=== PATIENT | female | born 1955 | race Caucasian/White ===

== ENCOUNTER 2017-11-22 21:19 | Inpatient (IN) | payer OTHER ==
[2017-11-22] MEDS: ACETAMINOPHEN 325 MG TAB PO (22:15)
[2017-11-22 22:45] LABS: BASO % 0.5 % (0.0-1.0); EOS % 0.3 % (0.0-3.0); HEMATOCRIT 43.9 % (36.0-47.0); HEMOGLOBIN 14.6 g/dl (12.0-15.5); IMMATURE GRANULOCYTE % 0.3 % (0-3.0); LYMPH # 1.1 10^3/uL (1.5-4.5); LYMPH % 14.8 % (24.0-44.0); MEAN CORPUSCULAR HEMOGLOBIN 31.1 pg (27.0-33.0); MEAN CORPUSCULAR HGB CONC 33.3 g/dl (32.0-36.5); MEAN CORPUSCULAR VOLUME 93.4 fl (80.0-96.0); MONO # 0.7 10^3/uL (0.0-0.8); MONO % 9.7 % (0.0-5.0); NEUTROPHILS # 5.5 10^3/uL (1.8-7.7); NEUTROPHILS % 74.4 % (36.0-66.0); PLATELET COUNT, AUTOMATED 185 10^3/uL (150-450); RED CELL DISTRIBUTION WIDTH 12.8 % (11.5-14.5); WHITE BLOOD COUNT 7.4 10^3/uL (4.0-10.0)
[2017-11-22 23:05] LABS: APPEARANCE, URINE CLEAR (CLEAR); BACTERIA, URINE AUTO NEGATIVE (NEGATIVE); BILIRUBIN, URINE AUTO NEGATIVE (NEGATIVE); BLOOD, URINE BLOOD NEGATIVE (NEGATIVE); COLOR, URINE YELLOW (YELLOW); GLUCOSE, URINE (UA) AUTO NEGATIVE (NEGATIVE); KETONE, URINE AUTO NEGATIVE (NEGATIVE); LEUKOCYTE ESTERASE, URINE AUTO NEGATIVE (NEGATIVE); MUCUS, URINE SMALL (NEGATIVE); NITRITE, URINE AUTO NEGATIVE (NEGATIVE); PROTEIN, URINE AUTO NEGATIVE (NEGATIVE); RBC, URINE AUTO 0 /HPF (0-3); SPECIFIC GRAVITY URINE AUTO 1.011 (1.002-1.035); SQUAMOUS EPITHELIAL CELL UR AU 0 /HPF (0-6); UROBILINOGEN, URINE AUTO 0.2 mg/dL (0.0-2.0); WBC, URINE AUTO 1 /HPF (0-3)
[2017-11-22 23:11] LABS: INFLUENZA A AMPLIFICATION NEGATIVE (NEGATIVE); INFLUENZA B AMPLIFICATION POSITIVE (NEGATIVE)
[2017-11-22 23:54] LABS: LACTIC ACID SEPSIS PROTOCOL 2.2 MMOL/L (0.4-2.0)
[2017-11-23 00:05] LABS: ALBUMIN 3.6 GM/DL (3.2-5.2); ALBUMIN/GLOBULIN RATIO 1.06 (1.00-1.93); ALKALINE PHOSPHATASE 65 U/L (45-117); ALT/SGPT 43 U/L (12-78); ANION GAP 8 MEQ/L (8-16); AST/SGOT 38 U/L (7-37); BILIRUBIN,DIRECT 0.1 MG/DL (0.0-0.2); BILIRUBIN,TOTAL 0.4 MG/DL (0.2-1.0); BLOOD UREA NITROGEN 8 MG/DL (7-18); CALCIUM LEVEL 8.6 MG/DL (8.8-10.2); CARBON DIOXIDE LEVEL 28 MEQ/L (21-32); CHLORIDE LEVEL 102 MEQ/L (98-107); GLOMERULAR FILTRATION RATE 48.6 (>45); GLUCOSE, FASTING 165 MG/DL (70-100); POTASSIUM SERUM 4.2 MEQ/L (3.5-5.1); SODIUM LEVEL 138 MEQ/L (136-145)
[2017-11-23] MEDS: IBUPROFEN 800 MG TAB PO (00:15)
[2017-11-23] MEDS: OSELTAMIVIR PHOSPHATE 75 MG CAP (TAMIFLU) PO ×3 (00:15→21:56)
[2017-11-23] MEDS: NS 500 ML IV ×2 (00:18→00:30)
[2017-11-23] MEDS ORDERED: ONDANSETRON 4MG/2ML VIAL (J2405) IV (00:45)
[2017-11-23] MEDS ORDERED: KETOROLAC TROMETHAMINE 10 MG TAB PO (02:15)
[2017-11-23] MEDS ORDERED: DEXTROSE 50% 50 ML SYRINGE IV (02:15)
[2017-11-23] MEDS ORDERED: GLUCOSE 4 GM CHEW TABLET PO (02:15)
[2017-11-23] MEDS ORDERED: GLUCAGON FOR INJ 1 MG VIAL (J1610) SC (02:15)
[2017-11-23] MEDS: NS 1,000 ML IV ×2 (02:38→16:27)
[2017-11-23] MEDS: ACETAMINOPHEN 500 MG TAB PO ×2 (02:38→21:57)
[2017-11-23] MEDS: LEVOTHYROXINE 137MCG TABLET (0.137MG) PO (06:06)
[2017-11-23 09:10] LABS: BEDSIDE GLUCOSE 136 MG/DL (80-115)
[2017-11-23] MEDS: GABAPENTIN 300 MG CAP PO ×3 (09:55→21:57)
[2017-11-23] MEDS: HumaLOG INSULIN (NovoLOG) PER UNIT SC ×4 (09:55→21:00)
[2017-11-23] MEDS: SENOKOT S TAB PO ×2 (09:55→21:56)
[2017-11-23] MEDS: ENOXAPARIN 40 MG/0.4 ML SYRINGE (J1650) SC (09:56)
[2017-11-23] MEDS: EUCERIN 120GM CREAM TOP ×2 (09:56→21:58)
[2017-11-23] MEDS: NYSTATIN 100,000 UNITS/GM TOPICAL PWD 15 GM TOP ×2 (09:57→21:57)
[2017-11-23 11:04] LABS: BASO % 0.8 % (0.0-1.0); EOS % 0.2 % (0.0-3.0); HEMATOCRIT 36.8 % (36.0-47.0); IMMATURE GRANULOCYTE % 0.2 % (0-3.0); LYMPH # 1.6 10^3/uL (1.5-4.5); LYMPH % 31.9 % (24.0-44.0); MEAN CORPUSCULAR HEMOGLOBIN 31.1 pg (27.0-33.0); MEAN CORPUSCULAR HGB CONC 33.4 g/dl (32.0-36.5); MEAN CORPUSCULAR VOLUME 92.9 fl (80.0-96.0); MONO # 0.6 10^3/uL (0.0-0.8); MONO % 11.9 % (0.0-5.0); NEUTROPHILS # 2.8 10^3/uL (1.8-7.7); PLATELET COUNT, AUTOMATED 159 10^3/uL (150-450); RED BLOOD COUNT 3.96 10^6/uL (4.00-5.40); RED CELL DISTRIBUTION WIDTH 13.1 % (11.5-14.5); WHITE BLOOD COUNT 5.1 10^3/uL (4.0-10.0)
[2017-11-23 11:07] LABS: HEMOGLOBIN 12.3 g/dl (12.0-15.5)
[2017-11-23 11:37] LABS: ANION GAP 5 MEQ/L (8-16); BLOOD UREA NITROGEN 9 MG/DL (7-18); CALCIUM LEVEL 7.7 MG/DL (8.8-10.2); CARBON DIOXIDE LEVEL 29 MEQ/L (21-32); CHLORIDE LEVEL 106 MEQ/L (98-107); CHOLESTEROL LEVEL 105 MG/DL (<200); CHOLESTEROL RISK RATIO 2.763 (<5); CPK CREATINE PHOSPHOKINASE 648 U/L (26-192); CREATININE FOR GFR 1.11 MG/DL (0.55-1.30); GLOMERULAR FILTRATION RATE 53.2 (>45); GLUCOSE, FASTING 145 MG/DL (70-100); HDL CHOLESTEROL 38 MG/DL (>40); LDL CHOLESTEROL 45.6 MG/DL (<100); MAGNESIUM LEVEL 1.9 MG/DL (1.8-2.4); NON-HDL-C 67 MG/DL; POTASSIUM SERUM 3.7 MEQ/L (3.5-5.1); SODIUM LEVEL 140 MEQ/L (136-145); TRIGLYCERIDES LEVEL 107 MG/DL (<150); TROPONIN I < 0.02 NG/ML (< 0.10)
[2017-11-23 11:43] LABS: CK-MB VALUE MASS 2.8 NG/ML (<3.6); MB/CK RELATIVE INDEX 0.43 (< OR =4); NT-PRO BNP 160 PG/ML (<125); THYROID STIMULATING HORMONE 0.712 uIU/ML (0.358-3.740)
[2017-11-23 11:50] LABS: BEDSIDE GLUCOSE 141 MG/DL (80-115)
[2017-11-23 15:03] LABS: ESTIMATED AVERAGE GLUCOSE 163 MG/DL (60-110); HEMOGLOBIN A1c 7.3 %
[2017-11-23 16:59] LABS: BEDSIDE GLUCOSE 138 MG/DL (80-115)
[2017-11-23] MEDS: BISACODYL 5 MG TAB PO (18:10)
[2017-11-23] MEDS: diphenhydrAMINE 25 MG CAP PO (21:56)
[2017-11-23] MEDS: traZODone 50 MG TAB PO (21:56)
[2017-11-24] MEDS: NS 1,000 ML IV (03:48)
[2017-11-24] MEDS: LEVOTHYROXINE 137MCG TABLET (0.137MG) PO (06:23)
[2017-11-24] MEDS: ACETAMINOPHEN 500 MG TAB PO (06:38)
[2017-11-24] MEDS: ONDANSETRON 4MG/2ML VIAL (J2405) IV (07:25)
[2017-11-24] MEDS: KETOROLAC 30 MG/ML VIAL (J1885) IV (07:27)
[2017-11-24 08:16] LABS: HEMATOCRIT 36.2 % (36.0-47.0); HEMOGLOBIN 11.9 g/dl (12.0-15.5); MEAN CORPUSCULAR HEMOGLOBIN 30.9 pg (27.0-33.0); MEAN CORPUSCULAR HGB CONC 32.9 g/dl (32.0-36.5); PLATELET COUNT, AUTOMATED 156 10^3/uL (150-450); RED BLOOD COUNT 3.85 10^6/uL (4.00-5.40); RED CELL DISTRIBUTION WIDTH 13.2 % (11.5-14.5); WHITE BLOOD COUNT 6.6 10^3/uL (4.0-10.0)
[2017-11-24 08:29] LABS: ANION GAP 7 MEQ/L (8-16); BLOOD UREA NITROGEN 7 MG/DL (7-18); CALCIUM LEVEL 7.6 MG/DL (8.8-10.2); CARBON DIOXIDE LEVEL 25 MEQ/L (21-32); CHLORIDE LEVEL 107 MEQ/L (98-107); CREATININE FOR GFR 0.99 MG/DL (0.55-1.30); GLOMERULAR FILTRATION RATE > 60.0 (>45); GLUCOSE, FASTING 151 MG/DL (70-100); POTASSIUM SERUM 3.7 MEQ/L (3.5-5.1); SODIUM LEVEL 139 MEQ/L (136-145)
[2017-11-24] MEDS: HumaLOG INSULIN (NovoLOG) PER UNIT SC ×4 (10:22→20:53)
[2017-11-24] MEDS: SENOKOT S TAB PO ×2 (10:23→20:31)
[2017-11-24] MEDS: GABAPENTIN 300 MG CAP PO ×3 (10:23→20:31)
[2017-11-24] MEDS: OSELTAMIVIR PHOSPHATE 75 MG CAP (TAMIFLU) PO ×2 (10:23→20:32)
[2017-11-24] MEDS: ENOXAPARIN 40 MG/0.4 ML SYRINGE (J1650) SC (10:23)
[2017-11-24] MEDS: NYSTATIN 100,000 UNITS/GM TOPICAL PWD 15 GM TOP ×2 (10:24→20:32)
[2017-11-24] MEDS: EUCERIN 120GM CREAM TOP ×2 (10:24→20:32)
[2017-11-24] MEDS: IPRATROPIUM 0.5MG/ALBUTEROL 2.5MG INH SOL UD 3ML (DUONEB)(J7620) NEB ×3 (12:00→19:52)
[2017-11-24] MEDS ORDERED: IPRATROPIUM 0.5MG/ALBUTEROL 2.5MG INH SOL UD 3ML (DUONEB)(J7620) NEB (12:15)
[2017-11-24 12:23] LABS: BEDSIDE GLUCOSE 215 MG/DL (80-115)
[2017-11-24 12:23] LABS: BEDSIDE GLUCOSE 171 MG/DL (80-115)
[2017-11-24 17:40] LABS: BEDSIDE GLUCOSE 190 MG/DL (80-115)
[2017-11-24] MEDS: ANALGESIC BALM CRM 120 GM TOP ×2 (17:49→20:32)
[2017-11-24] MEDS: guaiFENesin ER 600 MG TAB PO (20:32)
[2017-11-24 21:53] LABS: BEDSIDE GLUCOSE 160 MG/DL (80-115)
[2017-11-24] MEDS: traZODone 50 MG TAB PO (21:54)
[2017-11-25] MEDS: ACETAMINOPHEN 500 MG TAB PO (05:55)
[2017-11-25] MEDS: LEVOTHYROXINE 137MCG TABLET (0.137MG) PO (05:55)
[2017-11-25 06:47] LABS: HEMATOCRIT 35.7 % (36.0-47.0); HEMOGLOBIN 11.7 g/dl (12.0-15.5); MEAN CORPUSCULAR HEMOGLOBIN 30.8 pg (27.0-33.0); MEAN CORPUSCULAR HGB CONC 32.8 g/dl (32.0-36.5); MEAN CORPUSCULAR VOLUME 93.9 fl (80.0-96.0); PLATELET COUNT, AUTOMATED 157 10^3/uL (150-450); RED CELL DISTRIBUTION WIDTH 13.3 % (11.5-14.5); WHITE BLOOD COUNT 4.9 10^3/uL (4.0-10.0)
[2017-11-25 07:02] LABS: ANION GAP 7 MEQ/L (8-16); BLOOD UREA NITROGEN 8 MG/DL (7-18); CALCIUM LEVEL 7.7 MG/DL (8.8-10.2); CARBON DIOXIDE LEVEL 27 MEQ/L (21-32); CHLORIDE LEVEL 104 MEQ/L (98-107); CREATININE FOR GFR 0.98 MG/DL (0.55-1.30); GLOMERULAR FILTRATION RATE > 60.0 (>45); GLUCOSE, FASTING 144 MG/DL (70-100); POTASSIUM SERUM 3.6 MEQ/L (3.5-5.1); SODIUM LEVEL 138 MEQ/L (136-145)
[2017-11-25] MEDS: IPRATROPIUM 0.5MG/ALBUTEROL 2.5MG INH SOL UD 3ML (DUONEB)(J7620) NEB ×2 (07:20→11:51)
[2017-11-25] MEDS: SENOKOT S TAB PO (08:10)
[2017-11-25] MEDS: HumaLOG INSULIN (NovoLOG) PER UNIT SC ×2 (08:10→12:00)
[2017-11-25] MEDS: GABAPENTIN 300 MG CAP PO (08:10)
[2017-11-25] MEDS: OSELTAMIVIR PHOSPHATE 75 MG CAP (TAMIFLU) PO (08:10)
[2017-11-25] MEDS: guaiFENesin ER 600 MG TAB PO (08:10)
[2017-11-25] MEDS: ENOXAPARIN 40 MG/0.4 ML SYRINGE (J1650) SC (08:10)
[2017-11-25] MEDS: ANALGESIC BALM CRM 120 GM TOP (08:11)
[2017-11-25] MEDS: NYSTATIN 100,000 UNITS/GM TOPICAL PWD 15 GM TOP (08:11)
[2017-11-25] MEDS: EUCERIN 120GM CREAM TOP (08:11)
[2017-11-25] MEDS ORDERED: OLOPATADINE 0.1% OPHTH SOL 5ML(PATANOL) OU (09:00)
[2017-11-25] MEDS ORDERED: POLYVINYL ALCOHOL OPHTH SOLN 15 ML(LIQUITEARS) OU (12:00)
[2017-11-25] MEDS ORDERED: DEXTROMETHORPHAN 60MG/10ML SUSP 90ML BTL(DELSYM) PO (12:00)
[2017-11-25] MEDS ORDERED: SODIUM CHLORIDE NASAL 0.65% SPRAY BTL (OCEAN) (12:15)
[2017-11-25 12:49] LABS: BEDSIDE GLUCOSE 172 MG/DL (80-115)
== END 2017-11-25 14:52 | disposition home or self-care (01) | DRG 113 ==
LOC: M ED INP 11-23 00:36 → M MSPAV 11-23 02:16 → M ED 21:19
DX: J10.1 Influenza due to other identified influenza virus with other respiratory manifestations (principal); E87.2 Acidosis; E88.81 Metabolic syndrome and other insulin resistance; E66.01 Morbid (severe) obesity due to excess calories; Z68.44 Body mass index [BMI] 60.0-69.9, adult; E03.9 Hypothyroidism, unspecified; E11.9 Type 2 diabetes mellitus without complications; M17.0 Bilateral primary osteoarthritis of knee; R00.0 Tachycardia, unspecified; M25.562 Pain in left knee; M25.561 Pain in right knee; Z79.899 Other long term (current) drug therapy; Z88.1 Allergy status to other antibiotic agents; Z88.8 Allergy status to other drugs, medicaments and biological substances; Z90.710 Acquired absence of both cervix and uterus

== ENCOUNTER → 2018-09-30 | Outpatient (CLI) | payer OTHER ==
[~2018-09-30] MED LIST: ACET500T15 PO; ALEV220T26 PO; BACT800T5 PO; BENG1CRE3 EXT; CETI10TA PO; DELS30LI4 PO; DIPH25CA PO; FURO40TA2 PO; GABA600T4 PO; GLIP5TAB8 PO; HYDR50TAB PO; IBUPOTC PO; METF500T13 PO; OSEL75CA2 PO; PATA0.2S OU; PERCOCET PO; PROT40IN4 PO; REFR0.5D8 OU; SALI0.6528; SYNT137T7 PO; TRAZ1TAB14 PO
[2018-09-30 18:43] LABS: CALCIUM LEVEL 8.9 MG/DL (8.8-10.2); CHOLESTEROL RISK RATIO 4.04 (<5); CREATININE FOR GFR 1.26 MG/DL (0.55-1.30); FREE T4 1.21 NG/DL (0.76-1.46); THYROID STIMULATING HORMONE 3.81 uIU/ML (0.358-3.740)
[2018-09-30 19:35] LABS: HEMOGLOBIN A1c 8.7 %
== END ==
LOC: M WUC 13:28
PROVIDERS: ATTEND Physician Assistant
DX: I10 Essential (primary) hypertension (principal); E11.49 Type 2 diabetes mellitus with other diabetic neurological complication; E03.9 Hypothyroidism, unspecified

== ENCOUNTER → 2018-12-22 | Outpatient (CLI) | payer OTHER ==
[2018-12-22 16:54] LABS: CALCIUM LEVEL 8.6 MG/DL (8.8-10.2); CREATININE FOR GFR 1.1 MG/DL (0.55-1.30); GLOMERULAR FILTRATION RATE 53.6 (>45); POTASSIUM SERUM 4.1 MEQ/L (3.5-5.1)
[2018-12-22 18:38] LABS: HEMOGLOBIN A1c 8.1 %
== END ==
LOC: M WUC 13:24
PROVIDERS: ATTEND Family Medicine
DX: E11.40 Type 2 diabetes mellitus with diabetic neuropathy, unspecified (principal)

== ENCOUNTER → 2019-06-18 | Outpatient (CLI) | payer OTHER ==
[~2019-06-18] MED LIST changes: -DIPH25CA PO; +DIPH25CA32 PO
[2019-06-18 16:49] LABS: BASO # 0.1 10^3/uL (0.0-0.2); BASO % 0.8 % (0.0-1.0); EOS # 0.1 10^3/uL (0.0-0.5); EOS % 1.3 % (0.0-3.0); HEMATOCRIT 44.5 % (36.0-47.0); HEMOGLOBIN 14.8 g/dl (12.0-15.5); LYMPH # 3.5 10^3/uL (1.5-5.0); LYMPH % 45.7 % (24.0-44.0); MEAN CORPUSCULAR HEMOGLOBIN 31.4 pg (27.0-33.0); MEAN CORPUSCULAR HGB CONC 33.3 g/dl (32.0-36.5); MEAN CORPUSCULAR VOLUME 94.5 fl (80.0-96.0); MONO # 0.5 10^3/uL (0.0-0.8); MONO % 6.2 % (0.0-5.0); NEUTROPHILS # 3.5 10^3/uL (1.5-8.5); NEUTROPHILS % 45.9 % (36.0-66.0); PLATELET COUNT, AUTOMATED 238 10^3/uL (150-450); RED BLOOD COUNT 4.71 10^6/uL (4.00-5.40); WHITE BLOOD COUNT 7.6 10^3/uL (4.0-10.0)
[2019-06-18 16:50] LABS: ALBUMIN 4.1 GM/DL (3.2-5.2); BILIRUBIN,TOTAL 0.4 MG/DL (0.2-1.0); CALCIUM LEVEL 9.4 MG/DL (8.8-10.2); CHOLESTEROL RISK RATIO 3.368 (<5); CREATININE FOR GFR 1.07 MG/DL (0.55-1.30); GLOMERULAR FILTRATION RATE 55.3 (>45); POTASSIUM SERUM 4.1 MEQ/L (3.5-5.1)
[2019-06-18 17:33] LABS: MAU/CREAT RATIO 95.5 MCG/MG (0.0-30.0)
== END ==
LOC: M WUC 13:15
PROVIDERS: ATTEND Family Medicine
DX: E11.40 Type 2 diabetes mellitus with diabetic neuropathy, unspecified (principal)

== ENCOUNTER 2023-03-03 00:49 | Observation (INO) | payer OTHER ==
[~2023-03-03] VITALS: Ht 157.5 cm; Wt 127.5 kg
[~2023-03-03 00:49] MED LIST changes: +DIPH-435 PO; -DIPH25CA32 PO; +OLOP2.5D3 OU; -PATA0.2S OU
[2023-03-03 03:16] LABS: BASO # 0.1 10^3/uL (0.0-0.2); BASO % 0.5 % (0.0-1.0); EOS % 0.4 % (0.0-3.0); HEMATOCRIT 42.2 % (36.0-47.0); HEMOGLOBIN 14.2 g/dl (12.0-15.5); LYMPH # 1.3 10^3/uL (1.5-5.0); LYMPH % 12.1 % (24.0-44.0); MEAN CORPUSCULAR HEMOGLOBIN 30.7 pg (27.0-33.0); MEAN CORPUSCULAR HGB CONC 33.6 g/dl (32.0-36.5); MEAN CORPUSCULAR VOLUME 91.3 fl (80.0-96.0); MONO # 0.8 10^3/uL (0.0-0.8); MONO % 7.9 % (2.0-8.0); NEUTROPHILS # 8.1 10^3/uL (1.5-8.5); NEUTROPHILS % 78.8 % (36.0-66.0); PLATELET COUNT, AUTOMATED 200 10^3/uL (150-450); RED BLOOD COUNT 4.62 10^6/uL (4.00-5.40); WHITE BLOOD COUNT 10.3 10^3/uL (4.0-10.0)
[2023-03-03] MEDS ORDERED: ACETAMINOPHEN TAB 650MG DOSE (2X325MG) PO ONE (03:35)
[2023-03-03 04:19] LABS: ALBUMIN 3.5 G/DL (3.2-5.2); ALKALINE PHOSPHATASE 52 U/L (46-116); ALT/SGPT 36 U/L (7.0-40); AST/SGOT 25 U/L (<34); BILIRUBIN,TOTAL 0.5 MG/DL (0.3-1.2); BLOOD UREA NITROGEN 11 MG/DL (9-23); CALCIUM LEVEL 8.8 MG/DL (8.3-10.6); CARBON DIOXIDE LEVEL 27 MMOL/L (20-31); CHLORIDE LEVEL 98 MMOL/L (98-107); CREATININE FOR GFR 0.84 MG/DL (0.55-1.30); GLOMERULAR FILTRATION RATE > 60.0 (>45); GLUCOSE, FASTING 242 MG/DL (74-106); MAGNESIUM LEVEL 1.6 MG/DL (1.8-2.4); SODIUM LEVEL 137 MMOL/L (136-145); TOTAL PROTEIN 6.9 G/DL (5.7-8.2)
[2023-03-03] MEDS ORDERED: LIDO5DIS41 TD (05:53)
[2023-03-03] MEDS ORDERED: ONDA4TAB6 PO (05:53)
[2023-03-03] MEDS ORDERED: LIDOCAINE 5% (LIDODERM) PATCH TD ONE (05:55)
[2023-03-03] MEDS ORDERED: MOM 30ML SUSPENSION UDC PO PRN (08:10)
[2023-03-03] MEDS ORDERED: DEXTROSE 50% 50ML SYRINGE IV PRN (08:10)
[2023-03-03] MEDS ORDERED: MAALOX 30 ML SUSP *UDC PO PRN (08:10)
[2023-03-03] MEDS ORDERED: GLUCOSE 4GM CHEW TABLET PO PRN (08:10)
[2023-03-03] MEDS ORDERED: GLUCAGON INJ 1MG VIAL SC PRN (08:10)
[2023-03-03] MEDS ORDERED: MED REC IN PROGRESS XX SCH (08:15)
[2023-03-03] MEDS ORDERED: ENOXAPARIN 40MG/0.4ML SYRINGE (J1650 PER 10MG) SC SCH (09:00)
[2023-03-03] MEDS ORDERED: METF-838 PO (09:07)
[2023-03-03] MEDS ORDERED: GABA-282 PO (09:07)
[2023-03-03] MEDS ORDERED: HOME MED LIST COMPLETE! XX SCH (09:15)
[2023-03-03] MEDS: ENOXAPARIN 60MG/0.6ML SYRINGE (J1650 PER 10MG) SC SCH ×2 (11:41→19:56)
[2023-03-03] MEDS: DOCUSATE SODIUM 100MG CAPSULE PO SCH ×2 (11:41→19:55)
[2023-03-03] MEDS: NS 1,000 ML IV SCH ×2 (11:42→18:10)
[2023-03-03] MEDS: guaiFENesin ER 600 MG TAB PO SCH ×2 (11:44→19:56)
[2023-03-03] MEDS: MAG SULF 1GM/100ML (MAG RUN) 1 GM in IV 1 EA IV SCH ×2 (11:45→13:22)
[2023-03-03] MEDS: INSULIN LISPRO (NovoLOG) PER UNIT SC SCH ×2 (12:00→17:30)
[2023-03-03 14:10] VITALS: BP 128/74; TEMP 97.9; O2SAT 94
[2023-03-03] MEDS ORDERED: traZODone 100 MG TAB PO PRN (15:20)
[2023-03-03] MEDS: GABAPENTIN 100 MG CAP PO SCH ×2 (16:43→19:55)
[2023-03-03 20:00] VITALS: BP 120/64; TEMP 98.8; O2SAT 97
[2023-03-03] MEDS ORDERED: INSULIN LISPRO (NovoLOG) PER UNIT SC SCH (21:00)
[2023-03-04] MEDS: ACETAMINOPHEN TAB 650MG DOSE (2X325MG) PO PRN ×2 (04:25→09:08)
[2023-03-04] MEDS: NS 1,000 ML IV SCH (04:25)
[2023-03-04 05:35] LABS: BASO # 0.1 10^3/uL (0.0-0.2); BASO % 0.7 % (0.0-1.0); EOS # 0.1 10^3/uL (0.0-0.5); HEMATOCRIT 37.7 % (36.0-47.0); HEMOGLOBIN 12.4 g/dl (12.0-15.5); LYMPH # 2.6 10^3/uL (1.5-5.0); LYMPH % 37.5 % (24.0-44.0); MEAN CORPUSCULAR HEMOGLOBIN 30.2 pg (27.0-33.0); MEAN CORPUSCULAR HGB CONC 32.9 g/dl (32.0-36.5); MEAN CORPUSCULAR VOLUME 91.7 fl (80.0-96.0); MONO # 0.8 10^3/uL (0.0-0.8); NEUTROPHILS # 3.3 10^3/uL (1.5-8.5); NEUTROPHILS % 48.5 % (36.0-66.0); PLATELET COUNT, AUTOMATED 166 10^3/uL (150-450); RED BLOOD COUNT 4.11 10^6/uL (4.00-5.40); WHITE BLOOD COUNT 6.8 10^3/uL (4.0-10.0)
[2023-03-04 06:00] VITALS: BP 113/64; TEMP 98.8; O2SAT 92
[2023-03-04] MEDS ORDERED: LEVOTHYROXINE 137MCG TABLET (0.137MG) PO SCH (06:00)
[2023-03-04 06:04] LABS: BLOOD UREA NITROGEN 10 MG/DL (9-23); CARBON DIOXIDE LEVEL 28 MMOL/L (20-31); CHLORIDE LEVEL 101 MMOL/L (98-107); CREATININE FOR GFR 0.77 MG/DL (0.55-1.30); GLOMERULAR FILTRATION RATE > 60.0 (>45); GLUCOSE, FASTING 160 MG/DL (74-106); MAGNESIUM LEVEL 1.7 MG/DL (1.8-2.4); POTASSIUM SERUM 3.9 MMOL/L (3.5-5.1); SODIUM LEVEL 137 MMOL/L (136-145)
[2023-03-04] MEDS: INSULIN LISPRO (NovoLOG) PER UNIT SC SCH ×2 (07:51→12:20)
[2023-03-04] MEDS: MAG SULF 1GM/100ML (MAG RUN) 1 GM in IV 1 EA IV SCH ×2 (07:52→09:07)
[2023-03-04] MEDS: DOCUSATE SODIUM 100MG CAPSULE PO SCH (08:01)
[2023-03-04] MEDS: guaiFENesin ER 600 MG TAB PO SCH (08:01)
[2023-03-04] MEDS: GABAPENTIN 100 MG CAP PO SCH (08:01)
[2023-03-04] MEDS: ENOXAPARIN 60MG/0.6ML SYRINGE (J1650 PER 10MG) SC SCH (08:02)
[2023-03-04] MEDS ORDERED: PREVNAR-20 VACCINE 0.5ML SYRINGE IM.IMMUN ONE (09:00)
[2023-03-04] MEDS ORDERED: MAGN1TAB26 PO (10:33)
[2023-03-05] MEDS ORDERED: COLA100C5 PO (20:04)
[2023-03-05] MEDS ORDERED: MIRA3350 PO (20:04)
== END 2023-03-04 13:30 | disposition home or self-care (01) ==
LOC: M ED 00:49 → M ED INP 08:08 → INTOOBSV 08:08 → ENRESERV 12:35 → M MSPAV 14:07
PROVIDERS: ADMIT Internal Medicine; ATTEND Internal Medicine
DX: R29.6 Repeated falls (principal); R53.1 Weakness; R05.8 Other specified cough; J02.9 Acute pharyngitis, unspecified; R50.9 Fever, unspecified; B97.89 Other viral agents as the cause of diseases classified elsewhere; E83.42 Hypomagnesemia; E11.9 Type 2 diabetes mellitus without complications; M54.2 Cervicalgia; G89.29 Other chronic pain; M51.9 Unspecified thoracic, thoracolumbar and lumbosacral intervertebral disc disorder; E66.01 Morbid (severe) obesity due to excess calories; Z68.43 Body mass index [BMI] 50.0-59.9, adult; Z88.8 Allergy status to other drugs, medicaments and biological substances; Z88.1 Allergy status to other antibiotic agents; Z79.899 Other long term (current) drug therapy; Z79.890 Hormone replacement therapy
CPT/HCPCS: 36415; 71045; 71250; 74176; 80048; 80053; 81001; 83605; 83735; 84145; 85025; 87486; 87581; 87633; 87798; 90471; 90677; 93005; 93306; 96361; 96365; 96366; 96372; 97161; 97165; 97530; 99285; J1650; J1815; J3475

== ENCOUNTER 2023-03-05 15:04 | Emergency (ER) | payer MEDICARE, OTHER ==
[~2023-03-05] VITALS: Ht 157.5 cm; Wt 146.4 kg
[~2023-03-05 15:04] MED LIST changes: +GABA-282 PO; +LIDO5DIS41 TD; +MAGN1TAB26 PO; +METF-838 PO; +ONDA4TAB6 PO
[2023-03-05] MEDS ORDERED: MIRA3350 PO (20:04)
[2023-03-05] MEDS ORDERED: COLA100C5 PO (20:04)
[2023-03-05 21:00] VITALS: BP 136/72; TEMP 98.5; O2SAT 98
== END 2023-03-05 21:25 | disposition home or self-care (01) ==
LOC: M ED 15:04 → EDBD 15:04 → M ED 21:25
DX: K59.00 Constipation, unspecified (principal); E03.9 Hypothyroidism, unspecified; M54.2 Cervicalgia; E66.01 Morbid (severe) obesity due to excess calories; I89.0 Lymphedema, not elsewhere classified; F41.9 Anxiety disorder, unspecified; F32.A Depression, unspecified; Z88.1 Allergy status to other antibiotic agents; Z88.8 Allergy status to other drugs, medicaments and biological substances; Z79.899 Other long term (current) drug therapy; Z79.84 Long term (current) use of oral hypoglycemic drugs

== ENCOUNTER 2024-10-29 21:25 | Inpatient (IN) | payer MEDICAID, MEDICARE, OTHER ==
[~2024-10-29] VITALS: Ht 160 cm; Wt 103.0 kg
[~2024-10-29 21:25] MED LIST changes: +COLA100C5 PO; +GABA-1172 PO; +GABA-1490 PO; -GABA-282 PO; -GABA600T4 PO; +GLIP5TAB17 PO; -GLIP5TAB8 PO; +MIRA3350 PO; +ONDA-282 PO; -ONDA4TAB6 PO
[2024-10-30] MEDS: NS (Normal Saline) 0.9% 1,000 ML IV ONE (08:45)
[2024-10-30] MEDS: ACETAMINOPHEN 500 MG TAB PO ONE (09:16)
[2024-10-30 11:28] LABS: BASO % 0.3 % (0.0-1.0); EOS % 0.1 % (0.0-3.0); HEMATOCRIT 34.6 % (36.0-47.0); HEMOGLOBIN 11.9 g/dl (12.0-15.5); LYMPH # 1.6 10^3/uL (1.5-5.0); LYMPH % 14.8 % (24.0-44.0); MEAN CORPUSCULAR HEMOGLOBIN 30.5 pg (27.0-33.0); MEAN CORPUSCULAR HGB CONC 34.4 g/dl (32.0-36.5); MEAN CORPUSCULAR VOLUME 88.7 fl (80.0-96.0); MONO # 0.8 10^3/uL (0.0-0.8); MONO % 7.1 % (2.0-8.0); NEUTROPHILS # 8.3 10^3/uL (1.5-8.5); NEUTROPHILS % 77.2 % (36.0-66.0); PLATELET COUNT, AUTOMATED 183 10^3/uL (150-450); WHITE BLOOD COUNT 10.7 10^3/uL (4.0-10.0)
[2024-10-30 11:58] LABS: ALBUMIN 3.2 G/DL (3.2-5.2); BILIRUBIN,DIRECT 0.4 MG/DL (<0.4); BILIRUBIN,TOTAL 0.5 MG/DL (0.3-1.2); CALCIUM LEVEL 8.4 MG/DL (8.3-10.6); CREATININE FOR GFR 1.51 MG/DL (0.55-1.30); GLOMERULAR FILTRATION RATE 36.5 (>45); POTASSIUM SERUM 3.2 MMOL/L (3.5-5.1)
[2024-10-30] MEDS: POTASSIUM CHLORIDE 10MEQ SR TABLET PO ONE (12:47)
[2024-10-30] MEDS: LR 2,000 ML IV ONE (13:35)
[2024-10-30] MEDS ORDERED: GLUCOSE 4 GM CHEW PO PRN (13:40)
[2024-10-30] MEDS ORDERED: DEXTROSE 50% 50ML SYRINGE IV PRN (13:40)
[2024-10-30] MEDS ORDERED: GLUCAGON INJ 1MG VIAL SC PRN (13:40)
[2024-10-30] MEDS ORDERED: ERGO500029 PO (14:21)
[2024-10-30] MEDS ORDERED: NAPR220C23 PO (14:21)
[2024-10-30] MEDS ORDERED: BISA5TAB15 PO (14:21)
[2024-10-30] MEDS ORDERED: ROSU20TA86 PO (14:21)
[2024-10-30] MEDS ORDERED: POLY17PO18 PO (14:21)
[2024-10-30] MEDS ORDERED: LORA-622 PO (14:21)
[2024-10-30] MEDS ORDERED: JANU100T PO (14:21)
[2024-10-30] MEDS ORDERED: HOME MED LIST COMPLETE! XX SCH (14:25)
[2024-10-30 17:47] VITALS: BP 108/60; TEMP 97.9; O2SAT 96
[2024-10-30] MEDS: INSULIN LISPRO (NovoLOG) PER UNIT SC SCH ×2 (18:09→20:09)
[2024-10-30 19:33] VITALS: BP 106/64; TEMP 98.4; O2SAT 100
[2024-10-30] MEDS: PERCOCET 5MG/325MG TAB PO ONE (20:07)
[2024-10-31 03:50] VITALS: BP 109/63; TEMP 97.9; O2SAT 92
[2024-10-31] MEDS ORDERED: PERCOCET 5MG/325MG TAB PO PRN (05:05)
[2024-10-31] MEDS: NS (Normal Saline) 0.9% 1,000 ML IV ONE (05:18)
[2024-10-31 06:14] LABS: HEMATOCRIT 34.6 % (36.0-47.0); HEMOGLOBIN 11.6 g/dl (12.0-15.5); MEAN CORPUSCULAR HEMOGLOBIN 30.9 pg (27.0-33.0); MEAN CORPUSCULAR HGB CONC 33.5 g/dl (32.0-36.5); PLATELET COUNT, AUTOMATED 168 10^3/uL (150-450); RED BLOOD COUNT 3.76 10^6/uL (4.00-5.40); WHITE BLOOD COUNT 7.2 10^3/uL (4.0-10.0)
[2024-10-31 06:36] LABS: THYROID STIMULATING HORMONE 0.077 uIU/ML (0.55-4.78)
[2024-10-31 06:40] LABS: CALCIUM LEVEL 8.6 MG/DL (8.3-10.6); CHOLESTEROL RISK RATIO 1.86 (<5); CREATININE FOR GFR 1.15 MG/DL (0.55-1.30); HDL CHOLESTEROL 43.4 MG/DL (>40); NON-HDL-C 37.6 MG/DL; POTASSIUM SERUM 3.9 MMOL/L (3.5-5.1)
[2024-10-31 08:16] LABS: HEMOGLOBIN A1c 5.2 % (4.0-6.0)
[2024-10-31] MEDS: GABAPENTIN 300 MG CAP PO SCH (09:02)
[2024-10-31] MEDS: PERCOCET 5MG/325MG TAB PO PRN (09:06)
[2024-10-31 09:07] LABS: FREE T4 1.61 NG/DL (0.89-1.76)
[2024-10-31] MEDS: LEVOTHYROXINE 112MCG TABLET (0.112MG) PO SCH (09:44)
[2024-10-31 12:00] VITALS: BP 107/63; TEMP 98.1; O2SAT 95
[2024-10-31] MEDS: NAPROXEN 250 MG TAB PO ONE (12:32)
[2024-10-31] MEDS: LIDOCAINE 5% (LIDODERM) PATCH TD SCH (12:37)
[2024-10-31] MEDS: D5W 1,000 ML IV ONE (14:17)
[2024-10-31 20:00] VITALS: BP 106/53; TEMP 97.7; O2SAT 97
[2024-10-31] MEDS ORDERED: BISACODYL 5MG TAB PO PRN (20:25)
[2024-10-31] MEDS: DOCUSATE SODIUM 100MG CAPSULE PO SCH (20:39)
[2024-10-31] MEDS ORDERED: LEVOTHYROXINE 137MCG TABLET (0.137MG) PO SCH (21:00)
[2024-11-01 04:04] VITALS: BP 108/55; TEMP 97.5; O2SAT 97
[2024-11-01 05:24] LABS: HEMATOCRIT 31.9 % (36.0-47.0); HEMOGLOBIN 10.8 g/dl (12.0-15.5); MEAN CORPUSCULAR HEMOGLOBIN 31.1 pg (27.0-33.0); MEAN CORPUSCULAR HGB CONC 33.9 g/dl (32.0-36.5); MEAN CORPUSCULAR VOLUME 91.9 fl (80.0-96.0); PLATELET COUNT, AUTOMATED 155 10^3/uL (150-450); RED BLOOD COUNT 3.47 10^6/uL (4.00-5.40); WHITE BLOOD COUNT 5.9 10^3/uL (4.0-10.0)
[2024-11-01 05:44] LABS: CALCIUM LEVEL 8.8 MG/DL (8.3-10.6); CREATININE FOR GFR 1.17 MG/DL (0.55-1.30); POTASSIUM SERUM 3.9 MMOL/L (3.5-5.1)
[2024-11-01] MEDS: D5W 1,000 ML IV ONE ×2 (08:10→09:13)
[2024-11-01 12:00] VITALS: BP 112/78; TEMP 98.1; O2SAT 95
[2024-11-01 12:36] LABS: HEMOGLOBIN 12.1 g/dl (12.0-15.5); MEAN CORPUSCULAR HEMOGLOBIN 30.6 pg (27.0-33.0); MEAN CORPUSCULAR HGB CONC 33.6 g/dl (32.0-36.5); MEAN CORPUSCULAR VOLUME 90.9 fl (80.0-96.0); PLATELET COUNT, AUTOMATED 200 10^3/uL (150-450); RED BLOOD COUNT 3.96 10^6/uL (4.00-5.40); WHITE BLOOD COUNT 7.4 10^3/uL (4.0-10.0)
[2024-11-01 12:59] LABS: CALCIUM LEVEL 8.7 MG/DL (8.3-10.6); CREATININE FOR GFR 1.01 MG/DL (0.55-1.30); POTASSIUM SERUM 3.1 MMOL/L (3.5-5.1)
[2024-11-01 14:50] LABS: CALCIUM LEVEL 8.7 MG/DL (8.3-10.6); CREATININE FOR GFR 1.08 MG/DL (0.55-1.30); GLOMERULAR FILTRATION RATE 53.7 (>45); POTASSIUM SERUM 3.6 MMOL/L (3.5-5.1)
[2024-11-01 19:48] VITALS: BP 108/57; TEMP 98.1; O2SAT 96
[2024-11-02 03:02] VITALS: BP 110/57; TEMP 97.7; O2SAT 97
[2024-11-02 05:34] LABS: HEMATOCRIT 31.4 % (36.0-47.0); HEMOGLOBIN 10.5 g/dl (12.0-15.5); MEAN CORPUSCULAR HEMOGLOBIN 30.3 pg (27.0-33.0); MEAN CORPUSCULAR HGB CONC 33.4 g/dl (32.0-36.5); MEAN CORPUSCULAR VOLUME 90.8 fl (80.0-96.0); PLATELET COUNT, AUTOMATED 181 10^3/uL (150-450); RED BLOOD COUNT 3.46 10^6/uL (4.00-5.40); WHITE BLOOD COUNT 5.3 10^3/uL (4.0-10.0)
[2024-11-02 05:55] LABS: CALCIUM LEVEL 8.5 MG/DL (8.3-10.6); CREATININE FOR GFR 0.99 MG/DL (0.55-1.30); GLOMERULAR FILTRATION RATE 59.4 (>45); POTASSIUM SERUM 3.6 MMOL/L (3.5-5.1)
== END 2024-11-02 13:06 | disposition home health service (06) | DRG 392 ==
LOC: M ED 10-30 12:06 → M ED INP 10-30 13:32 → M MSPAV 10-30 17:47
PROVIDERS: ADMIT General Practice; ATTEND General Practice
DX: K52.9 Noninfective gastroenteritis and colitis, unspecified (principal); N17.9 Acute kidney failure, unspecified; Z68.41 Body mass index [BMI] 40.0-44.9, adult; E11.9 Type 2 diabetes mellitus without complications; E03.9 Hypothyroidism, unspecified; E66.9 Obesity, unspecified; I89.0 Lymphedema, not elsewhere classified; M54.9 Dorsalgia, unspecified; B37.9 Candidiasis, unspecified; G89.29 Other chronic pain; M19.90 Unspecified osteoarthritis, unspecified site; D64.9 Anemia, unspecified; R26.89 Other abnormalities of gait and mobility; W01.0XXA Fall on same level from slipping, tripping and stumbling without subsequent striking against object, initial encounter; Y92.009 Unspecified place in unspecified non-institutional (private) residence as the place of occurrence of the external cause; E87.6 Hypokalemia; G47.33 Obstructive sleep apnea (adult) (pediatric); Z79.890 Hormone replacement therapy; Z79.84 Long term (current) use of oral hypoglycemic drugs; Z79.899 Other long term (current) drug therapy; Z88.1 Allergy status to other antibiotic agents; Z88.8 Allergy status to other drugs, medicaments and biological substances; Z90.79 Acquired absence of other genital organ(s)